=== PATIENT | female | born 1955 | race Caucasian/White ===

== ENCOUNTER 2021-01-20 17:11 | Inpatient (IN) ==
[2021-01-20 20:28] LABS: Hematocrit 42.7 % (35.3-44.9); Hemoglobin 14.3 g/dL (11.5-15.4); Mean Corpuscular HGB Conc 33.5 g/dL (31.6-35.5); Mean Corpuscular Hemoglobin 31.2 pg (28.0-33.3); Mean Platelet Volume 9.7 fL (9.4-12.4); Platelet Count 125 K/mcL (140-400); Red Blood Count 4.59 M/mcL (3.82-4.97); Red Cell Distribution Width 15.9 % (11.5-14.5); White Blood Count 13.9 K/mcL (4.3-11.1)
[2021-01-20 20:49] LABS: Albumin 2.8 g/dL (3.5-5.7); Albumin/Globulin Ratio 0.7 (1.1-2.2); Bilirubin,Direct 2.6 mg/dL (0.0-0.2); Bilirubin,Indirect 2.5 mg/dL (0.0-1.0); Bilirubin,Total 5.1 mg/dL (0.3-1.0); Calcium 9.6 mg/dL (8.6-10.3); Globulin 3.9 g/dL (2.4-3.5); Potassium 4.8 mEq/L (3.5-5.1); Total Protein 6.7 g/dL (6.4-8.9)
[2021-01-20 21:14] LABS: Bacteria,Urine Few per hpf (None-Few); Bilirubin,Urine Small (Negative); Blood,Urine Moderate (Negative); Clarity,Urine Ex.Turbid (Clear); Color,Urine Dark-Yellow (Yellow); Glucose,Urine (UA) 50 mg/dL (Normal); Hyaline Casts,Urine Moderate per lpf (None Seen); Ketones,Urine Negative (Negative); Leukocyte Esterase,Urine Large (Negative); Mucus,Urine Few per lpf (None-Few); Nitrite,Urine Negative (Negative); PH,Urine 5.5 pH Units (5.0-8.0); Protein,Urine 70 mg/dL (Neg-Trace); RBC,Urine 15-30 per hpf (0-3); Specific Gravity,Urine 1.023 (1.010-1.025); Squamous Epithelial Cell,Urine Many per hpf (None-Few); Transitional Epi Cells,Urine Few per hpf (None-Few); WBC,Urine TNTC per hpf (0-3)
[2021-01-21] MEDS ORDERED: Isovue-370 500 ML BOTTLE IVP ONE (01:34)
[2021-01-21] MEDS ORDERED: cefTRIAXone 2,000 MG in Water for inj. (sterile) 20 ML IVP ONE (01:52)
[2021-01-21 04:57] LABS: Hepatitis B Surface Antigen Nonreactive (Nonreactive)
[2021-01-21 05:25] LABS: Hepatitis B Core IgM Nonreactive (Nonreactive)
[2021-01-21 05:27] LABS: Hepatitis A Antibody IgM Nonreactive (Nonreactive)
[2021-01-21] MEDS ORDERED: Acetaminophen 325 MG TABLET PO PRN (05:44)
[2021-01-21] MEDS ORDERED: Naloxone 0.4 MG/ML INJ IVP PRN (05:44)
[2021-01-21] MEDS ORDERED: Ondansetron 4 MG/2 ML VIAL IVP PRN (05:44)
[2021-01-21] MEDS ORDERED: 0.9 % Sodium Chloride 1,000 ML IVC SCH ×2 (05:45→11:51)
[2021-01-21 06:44] LABS: Influenza A PCR Negative (Negative); Influenza B PCR Negative (Negative); Resp. Syncytial Virus PCR Negative (Negative)
[2021-01-21 06:45] LABS: SARS-CoV-2 by PCR (In House) Negative (Negative)
[2021-01-21 07:29] LABS: Hepatitis C Virus Antibody Reactive (Nonreactive)
[2021-01-21] MEDS ORDERED: *HR* OxyCODONE Immed Rel 5 MG TABLET PO PRN (11:51)
[2021-01-21 11:55] LABS: Hematocrit 37.2 % (35.3-44.9); Mean Corpuscular HGB Conc 34.1 g/dL (31.6-35.5); Mean Corpuscular Hemoglobin 31.7 pg (28.0-33.3); Mean Corpuscular Volume 92.8 fL (83.0-100.0); Mean Platelet Volume 10.4 fL (9.4-12.4); Platelet Count 118 K/mcL (140-400); Red Blood Count 4.01 M/mcL (3.82-4.97); White Blood Count 14.4 K/mcL (4.3-11.1)
[2021-01-21 11:57] LABS: Hemoglobin 12.7 g/dL (11.5-15.4)
[2021-01-21 12:04] LABS: INR 1.7; Prothrombin Time 19.1 Seconds (9.4-12.1)
[2021-01-21 12:07] LABS: Albumin 2.4 g/dL (3.5-5.7); Albumin/Globulin Ratio 0.7 (1.1-2.2); Bilirubin,Total 4.2 mg/dL (0.3-1.0); Calcium 9.4 mg/dL (8.6-10.3); Globulin 3.3 g/dL (2.4-3.5); Potassium 5.1 mEq/L (3.5-5.1); Total Protein 5.7 g/dL (6.4-8.9)
[2021-01-21 16:55] LABS: Glucose,Peritoneal Fluid 92 mg/dL (No Ref Range); LDH,Peritoneal Fluid 66 Units/L (No Ref Range); Total Protein,Peritoneal Fluid < 2.0 g/dL
[2021-01-21 18:33] LABS: RBC,Peritoneal Fluid 2000 RBC/mcL
[2021-01-21 19:32] LABS: Appearance of Peritoneal Fl CLEAR (Clear)
[2021-01-21 19:37] LABS: Basophils,Peritoneal Fluid 0 %
[2021-01-21] MEDS: Albumin 25% 25gram/100mL 25 GM/100 ML IV.SOLN IVPB SCH (20:47)
[2021-01-21 22:43] LABS: Potassium 5.3 mEq/L (3.5-5.1); Uric Acid 10.3 mg/dL (2.3-7.6)
[2021-01-22] MEDS: Albumin 25% 25gram/100mL 25 GM/100 ML IV.SOLN IVPB SCH (02:10)
[2021-01-22 04:54] LABS: Basophils % 0.2 %; Red Cell Distribution Width 15.9 % (11.5-14.5)
[2021-01-22 04:55] LABS: Eosinophils # 0.2 K/mcL (0.0-0.6); Eosinophils % 1.2 %; Hematocrit 31.7 % (35.3-44.9); Hemoglobin 10.6 g/dL (11.5-15.4); Immature Granulocytes % 0.6 % (0-4); Immature Platelets 2.4 % (1.1-6.1); Lymphocytes # 1.4 K/mcL (0.6-4.6); Lymphocytes % 11.7 %; Magnesium 2.3 mg/dL (1.6-2.6); Mean Corpuscular HGB Conc 33.4 g/dL (31.6-35.5); Mean Corpuscular Hemoglobin 31.1 pg (28.0-33.3); Monocytes # 1.8 K/mcL (0.0-1.3); Monocytes % 14.5 %; Neutrophils # 8.7 K/mcL (1.6-8.9); Nucleated Red Blood Cells 0.2 /100 WBC (0); Phosphorous 5.4 mg/dL (2.7-4.5); Red Blood Count 3.41 M/mcL (3.82-4.97); Segmented Neutrophils % 71.8 %; White Blood Count 12.1 K/mcL (4.3-11.1)
[2021-01-22 04:59] LABS: Platelet Count 91 K/mcL (140-400)
[2021-01-22 05:08] LABS: Prothrombin Time 22.2 Seconds (9.4-12.1)
[2021-01-22] MEDS: cefTRIAXone 1,000 MG in Water for inj. (sterile) 10 ML IVP SCH (09:59)
[2021-01-22] MEDS ORDERED: Azithromycin 250 MG TABLET PO ONE ×2 (10:04→16:15)
[2021-01-22 10:08] LABS: Calcium 9.2 mg/dL (8.6-10.3); Potassium 5.1 mEq/L (3.5-5.1)
[2021-01-22 14:16] LABS: Hematocrit 37.1 % (35.3-44.9)
[2021-01-22 14:17] LABS: Hemoglobin 12.2 g/dL (11.5-15.4)
[2021-01-22 14:37] LABS: Complement C3 42 mg/dL (87-200)
[2021-01-23] MEDS ORDERED: *HR* LORazepam 2 MG/ML VIAL IVP ONE (02:43)
[2021-01-23] MEDS: Azithromycin 250 MG TABLET PO SCH (09:10)
[2021-01-23] MEDS: cefTRIAXone 1,000 MG in Water for inj. (sterile) 10 ML IVP SCH (09:11)
[2021-01-23 09:50] LABS: Basophils # 0.1 K/mcL (0.0-0.2); Basophils % 0.4 %; Eosinophils # 0.2 K/mcL (0.0-0.6); Eosinophils % 1.2 %; Hematocrit 37.7 % (35.3-44.9); Hemoglobin 12.4 g/dL (11.5-15.4); Immature Platelets 2.4 % (1.1-6.1); Lymphocytes # 1.7 K/mcL (0.6-4.6); Lymphocytes % 9.9 %; Mean Corpuscular HGB Conc 32.9 g/dL (31.6-35.5); Mean Corpuscular Hemoglobin 30.9 pg (28.0-33.3); Mean Platelet Volume 10.1 fL (9.4-12.4); Monocytes # 2.4 K/mcL (0.0-1.3); Monocytes % 13.7 %; Red Blood Count 4.01 M/mcL (3.82-4.97); Red Cell Distribution Width 16.1 % (11.5-14.5); Segmented Neutrophils % 73.8 %; White Blood Count 17.3 K/mcL (4.3-11.1)
[2021-01-23 09:58] LABS: Neutrophils # 12.8 K/mcL (1.6-8.9); Platelet Count 82 K/mcL (140-400)
[2021-01-23 10:09] LABS: Calcium 9.1 mg/dL (8.6-10.3); Potassium 5.2 mEq/L (3.5-5.1)
[2021-01-23 10:20] LABS: Thyroid Stimulating Hormone 1.505 mcIU/mL (0.340-5.600)
[2021-01-23] MEDS ORDERED: 0.9 % Sodium Chloride 1,000 ML IVC SCH (12:00)
[2021-01-23] MEDS: *HR* Heparin 5,000 UNIT/ML VIAL SQ SCH (17:49)
[2021-01-23] MEDS: Lactulose Oral Soln 20 GM/30 ML UDC PO SCH (17:49)
[2021-01-23] MEDS: SODIUM ZIRCONIUM CYCLOSILICATE 5 GM POWD.PACK PO SCH (17:50)
[2021-01-24] MEDS: *HR* Heparin 5,000 UNIT/ML VIAL SQ SCH ×2 (05:18→18:16)
[2021-01-24 06:48] LABS: Basophils # 0.1 K/mcL (0.0-0.2); Basophils % 0.3 %; Eosinophils # 0.4 K/mcL (0.0-0.6); Eosinophils % 2.3 %; Hematocrit 36.6 % (35.3-44.9); Hemoglobin 12.4 g/dL (11.5-15.4); Immature Granulocytes % 0.8 % (0-4); Lymphocytes # 1.8 K/mcL (0.6-4.6); Mean Corpuscular HGB Conc 33.9 g/dL (31.6-35.5); Mean Corpuscular Hemoglobin 31.2 pg (28.0-33.3); Mean Corpuscular Volume 92.2 fL (83.0-100.0); Mean Platelet Volume 10.1 fL (9.4-12.4); Monocytes # 2.3 K/mcL (0.0-1.3); Monocytes % 13.9 %; Neutrophils # 11.7 K/mcL (1.6-8.9); Platelet Count 101 K/mcL (140-400); Red Blood Count 3.97 M/mcL (3.82-4.97); Red Cell Distribution Width 16.2 % (11.5-14.5); Segmented Neutrophils % 71.7 %; White Blood Count 16.4 K/mcL (4.3-11.1)
[2021-01-24 06:56] LABS: INR 1.7; Prothrombin Time 18.4 Seconds (9.4-12.1)
[2021-01-24 07:13] LABS: Albumin 2.6 g/dL (3.5-5.7); Albumin/Globulin Ratio 0.9 (1.1-2.2); Bilirubin,Indirect 1.9 mg/dL (0.0-1.0); Bilirubin,Total 3.9 mg/dL (0.3-1.0); Globulin 2.8 g/dL (2.4-3.5); Potassium 4.6 mEq/L (3.5-5.1); Total Protein 5.4 g/dL (6.4-8.9)
[2021-01-24] MEDS: Lactulose Oral Soln 20 GM/30 ML UDC PO SCH (09:37)
[2021-01-24] MEDS: cefTRIAXone 1,000 MG in Water for inj. (sterile) 10 ML IVP SCH (09:37)
[2021-01-24] MEDS: Azithromycin 250 MG TABLET PO SCH (09:38)
[2021-01-24] MEDS: SODIUM ZIRCONIUM CYCLOSILICATE 5 GM POWD.PACK PO SCH (09:38)
[2021-01-24] MEDS ORDERED: Sodium Bicarbonate 75 MEQ in D5% in Water 1,000 ML IVC SCH (10:15)
[2021-01-24] MEDS: Doxycycline 100 MG CAPSULE PO SCH ×2 (11:22→20:33)
[2021-01-24 12:03] LABS: Fluid Source for Albumin PERIT/ASCITES
[2021-01-24] MEDS ORDERED: ALPRAZolam 0.25 MG TABLET PO ONE (20:10)
[2021-01-25] MEDS: *HR* Heparin 5,000 UNIT/ML VIAL SQ SCH ×2 (06:13→17:36)
[2021-01-25 07:40] LABS: Basophils % 0.2 %; Eosinophils # 0.3 K/mcL (0.0-0.6); Hematocrit 36.2 % (35.3-44.9); Hemoglobin 12.5 g/dL (11.5-15.4); Immature Granulocytes % 1.1 % (0-4); Lymphocytes # 1.4 K/mcL (0.6-4.6); Mean Corpuscular HGB Conc 34.5 g/dL (31.6-35.5); Mean Corpuscular Hemoglobin 31.6 pg (28.0-33.3); Mean Corpuscular Volume 91.4 fL (83.0-100.0); Mean Platelet Volume 10.3 fL (9.4-12.4); Monocytes # 2.3 K/mcL (0.0-1.3); Monocytes % 13.6 %; Neutrophils # 12.9 K/mcL (1.6-8.9); Platelet Count 110 K/mcL (140-400); Red Blood Count 3.96 M/mcL (3.82-4.97); Red Cell Distribution Width 16.2 % (11.5-14.5); Segmented Neutrophils % 75.1 %; White Blood Count 17.1 K/mcL (4.3-11.1)
[2021-01-25 07:57] LABS: INR 1.6; Prothrombin Time 17.3 Seconds (9.4-12.1)
[2021-01-25 08:03] LABS: Albumin 2.5 g/dL (3.5-5.7); Albumin/Globulin Ratio 0.9 (1.1-2.2); Bilirubin,Direct 1.9 mg/dL (0.0-0.2); Bilirubin,Indirect 1.9 mg/dL (0.0-1.0); Bilirubin,Total 3.8 mg/dL (0.3-1.0); Calcium 8.9 mg/dL (8.6-10.3); Globulin 2.8 g/dL (2.4-3.5); Potassium 4.2 mEq/L (3.5-5.1); Total Protein 5.3 g/dL (6.4-8.9)
[2021-01-25] MEDS: Lactulose Oral Soln 20 GM/30 ML UDC PO SCH (09:37)
[2021-01-25] MEDS: SODIUM ZIRCONIUM CYCLOSILICATE 5 GM POWD.PACK PO SCH (09:37)
[2021-01-25] MEDS: cefTRIAXone 1,000 MG in Water for inj. (sterile) 10 ML IVP SCH (09:38)
[2021-01-25] MEDS: Doxycycline 100 MG CAPSULE PO SCH ×2 (09:39→21:22)
[2021-01-25 11:57] LABS: Total Volume 24 Hour,Urine 0.33 Liters (0.60-1.60)
[2021-01-25 12:11] LABS: Protein/Creatinine Ratio,Urine 0.64 mg/mg (0.00-0.20)
[2021-01-25 13:00] LABS: Creatinine,Urine 204 mg/dL; Sodium, Urine < 10.0 mEq/L
[2021-01-25 14:37] LABS: HCV Quant Interpretation DETECTED (Not Detected); HCV Quant Log 5.66 log IU/mL
[2021-01-25] MEDS ORDERED: ALPRAZolam 0.25 MG TABLET PO ONE (21:43)
[2021-01-26] MEDS: *HR* Heparin 5,000 UNIT/ML VIAL SQ SCH (06:39)
[2021-01-26 08:14] VITALS: BP 113/64; PULSE 82; TEMP 98; O2SAT 97
[2021-01-26] MEDS: Lactulose Oral Soln 20 GM/30 ML UDC PO SCH (08:23)
[2021-01-26] MEDS: cefTRIAXone 1,000 MG in Water for inj. (sterile) 10 ML IVP SCH (08:23)
[2021-01-26] MEDS: SODIUM ZIRCONIUM CYCLOSILICATE 5 GM POWD.PACK PO SCH (08:24)
[2021-01-26] MEDS: Doxycycline 100 MG CAPSULE PO SCH (08:24)
[2021-01-28 11:11] LABS: HCV Genotype by Sequencing 1A OR 1B
== END 2021-01-26 09:28 | disposition short-term general hospital (02) | DRG 530 ==
LOC: 3ANU 17:11 → EMEROOARM 17:11 → SUATTDRO 01-21 05:32 → 3ANU 01-21 06:17 → SUATTDRO 01-23 13:02
PROVIDERS: ADMIT Family Medicine; ATTEND Internal Medicine